=== PATIENT | female | born 1945 | race Caucasian/White ===

== ENCOUNTER 2019-01-31 06:45 | Inpatient (IN) ==
[2019-01-25 15:23] LABS: Basophils # 0.1 10*3/uL (0.0-0.2); Basophils % 0.7 % (0.0-0.8); Eosinophils # 0.1 10*3/uL (0.0-0.87); Eosinophils % 1.3 % (0.00-10.9); Hematocrit 42.1 VOL% (35.7-47.0); Hemoglobin 12.8 GM/DL (12.0-16.0); Immature Granulocytes % 0.5 %; Immature Granulocytes Absolute 0.04 #; Lymphocytes # 1.8 10*3/uL (1.4-4.0); Lymphocytes % 20.9 % (21.3-54.2); Mean Corpuscular HGB Conc 30.4 GM/DL (32-36); Mean Corpuscular Volume 97.5 FL (87-102); Mean Platelet Volume 10.4 FL (9.6-12.0); Monocytes % 7.6 % (1.7-12.7); Platelet Count 271 T/CUMM (130-400); Red Blood Count 4.32 MC/CUMM (3.8-5.5); Red Cell Distribution Width 13.2 % (9.3-17.3); White Blood Count 8.4 T/CUMM (4-12)
[2019-01-25 15:44] LABS: Albumin 3.6 G/DL (3.4-5.0); Bilirubin,Total 0.8 MG/DL (0.2-1.0); Calcium 9.1 MG/DL (8.5-10.1); Osmolality,Calculated 275.7 MOS/KG (273-304); Total Protein 7.3 G/DL (6.4-8.3)
[~2019-01-31 06:45] MED LIST: ceFAZolin 1,000 MG VIAL ONE; ceFAZolin 1,000 MG in SYRINGE 1 EACH IV ONE
[2019-01-31] MEDS ORDERED: LACTATED RINGERS 1,000 ML IV SCH (07:30)
[2019-01-31] MEDS ORDERED: HEPARIN/NACL 0.9% 2 UNITS/ML 2,000 ML IV ONE (07:34)
[2019-01-31] MEDS ORDERED: BUPIVACAINE 0.5% 50 ML VIAL ONE (09:29)
[2019-01-31] MEDS ORDERED: HEPARIN 5,000 UNIT/1 ML VIAL ONE (09:29)
[2019-01-31] MEDS ORDERED: THROMBIN TOPICAL (RECOMBINANT) 5,000 UNIT VIAL TOP ONE (09:30)
[2019-01-31] MEDS ORDERED: LIDOCAINE 1% 20 ML VIAL ONE (09:30)
[2019-01-31] MEDS ORDERED: VANCOMYCIN 500 MG VIAL ONE (09:30)
[2019-01-31] MEDS ORDERED: ONDANSETRON 4 MG/2 ML VIAL IV PRN (14:07)
[2019-01-31] MEDS ORDERED: ALBUTEROL 2.5 MG/3 ML NEB RESP TX PRN (14:10)
[2019-01-31] MEDS ORDERED: NON-FORMULARY MEDICATION (Albuterol Sulfate [Proair Hfa] 2 PUFF) INH PRN (14:10)
[2019-01-31] MEDS ORDERED: KETOROLAC 15 MG/1 ML VIAL IV PRN (14:12)
[2019-01-31] MEDS ORDERED: FLUTICASONE PROPION SALMETEROL INH SCH (14:15)
[2019-01-31] MEDS ORDERED: PROPOFOL 200 MG/20 ML VIAL IV ONE (14:27)
[2019-01-31] MEDS ORDERED: PROTAMINE SULFATE 50 MG/5 ML VIAL IV ONE (14:28)
[2019-01-31] MEDS ORDERED: GLYCOPYRROLATE 0.4 MG/2 ML VIAL ONE (14:28)
[2019-01-31] MEDS ORDERED: DEXAMETHASONE 4 MG/1 ML VIAL ONE (14:28)
[2019-01-31] MEDS ORDERED: PHENYLEPHRINE DRIP 20 MG/250 ML PREMIX IV ONE (14:28)
[2019-01-31] MEDS ORDERED: SEVOFLURANE 1 UNIT/15 MINUTE INH ONE (14:28)
[2019-01-31] MEDS ORDERED: fentaNYL 100 MCG/2 ML VIAL ONE (14:28)
[2019-01-31] MEDS ORDERED: HEPARIN 10,000 UNIT/10 ML VIAL ONE (14:28)
[2019-01-31] MEDS ORDERED: NEOSTIGMINE 10 MG/10 ML VIAL ONE (14:29)
[2019-01-31] MEDS ORDERED: PHENYLEPHRINE 1 MG/10 ML SYRINGE IV ONE (14:29)
[2019-01-31] MEDS ORDERED: ROCURONIUM 100 MG/10 ML VIAL IV ONE (14:29)
[2019-01-31] MEDS: LACTATED RINGERS 1,000 ML IV SCH (16:10)
[2019-01-31] MEDS: CILOSTAZOL 100 MG TABLET PO SCH (21:50)
[2019-02-01] MEDS: ALBUTEROL/IPRATROPIUM 3 ML NEB RESP TX SCH ×3 (02:18→07:15)
[2019-02-01] MEDS: LACTATED RINGERS 1,000 ML IV SCH ×2 (03:00→08:46)
[2019-02-01 04:43] LABS: Hematocrit 31.2 VOL% (35.7-47.0); Hemoglobin 9.7 GM/DL (12.0-16.0)
[2019-02-01 04:57] LABS: Calcium 7.9 MG/DL (8.5-10.1)
[2019-02-01 08:06] VITALS: BP 124/70
[2019-02-01] MEDS ORDERED: CLOPIDOGREL 75 MG TABLET PO SCH ×2 (09:00)
[2019-02-01] MEDS ORDERED: ATORVASTATIN 20 MG TABLET PO SCH (09:00)
[2019-02-01] MEDS ORDERED: FLUTICASONE 50 MCG NASAL SPRAY 16 GM BOTTLE BOTH NARES SCH (09:00)
[2019-02-01] MEDS ORDERED: ESCITALOPRAM 10 MG TABLET PO SCH (09:00)
[2019-02-01] MEDS ORDERED: ISOSORBIDE MONONITRATE 30 MG TABLET PO SCH (09:00)
[2019-02-01] MEDS ORDERED: ASPIRIN CHEW 81 MG TABLET PO SCH (09:00)
[2019-02-01] MEDS ORDERED: ATENOLOL 50 MG TABLET PO SCH (09:00)
[2019-02-01] MEDS ORDERED: TRIAMTERENE/HCTZ 75-50 MG TABLET PO SCH (09:00)
[2019-02-01] MEDS ORDERED: MONTELUKAST 10 MG TABLET PO SCH (09:00)
[2019-02-01] MEDS: CILOSTAZOL 100 MG TABLET PO SCH (10:23)
== END 2019-02-01 10:48 | disposition home or self-care (01) | DRG 254 ==
LOC: N.SDSINP 06:45 → N.4E 14:57
PROVIDERS: ADMIT Surgery; ATTEND Surgery

== ENCOUNTER 2020-01-24 12:39 | Inpatient (IN) ==
[2020-01-24] MEDS ORDERED: ONDANSETRON 4 MG/2 ML VIAL IV STA (13:01)
[2020-01-24] MEDS ORDERED: fentaNYL 100 MCG/2 ML VIAL IV STA (13:01)
[2020-01-24 13:31] LABS: Basophils # 0.1 10*3/uL (0.0-0.2); Basophils % 0.4 % (0.0-0.8); Eosinophils % 0.2 % (0.00-10.9); Hematocrit 36.5 VOL% (35.7-47.0); Hemoglobin 11.3 GM/DL (12.0-16.0); Immature Granulocytes % 0.6 %; Immature Granulocytes Absolute 0.08 #; Lymphocytes # 2.2 10*3/uL (1.4-4.0); Lymphocytes % 15.4 % (21.3-54.2); Mean Corpuscular Volume 93.8 FL (87-102); Mean Platelet Volume 10.2 FL (9.6-12.0); Monocytes % 8.6 % (1.7-12.7); Neutrophils % 74.8 % (38.7-73.9); Platelet Count 308 T/CUMM (130-400); Red Blood Count 3.89 MC/CUMM (3.8-5.5); Red Cell Distribution Width 14.6 % (9.3-17.3); White Blood Count 14.3 T/CUMM (4-12)
[2020-01-24 13:44] LABS: INR 1.1; PT Patient Result 11.3 SECS (9.8-11.9)
[2020-01-24 14:02] LABS: Alanine Aminotransferase 12 U/L (13-56); Alkaline Phosphatase 95 U/L (45-117); Aspartate Amino Transferase 15 U/L (0-37); Blood Urea Nitrogen 27 MG/DL (7-18); Calcium 8.2 MG/DL (8.5-10.1); Estimated Glom Filtration Rate 41 ML/MIN; Ferritin 22.9 ng/ml (8-252); Glucose 89 MG/DL (74-106); Total Protein 6.5 G/DL (6.4-8.3); Troponin I < 0.015 NG/ML (0.00-0.045)
[2020-01-24 14:24] LABS: Apearance,Urine CLOUDY (Clear); Bacteria,Urine Moderate /HPF (Few); Bilirubin,Urine Negative (Negative); Blood, Urine Negative (Negative); Glucose,Urine (UA) Negative (Negative); Hyaline Casts,Urine 3 /LPF (0-3); Ketones,Urine Negative (Negative); Mucus,Urine Occasional /LPF (Occasional); Nitrite,Urine Negative (Negative); Protein,Urine Negative; RBC,Urine 3 /HPF (0-4); Squamous Epithelial Cell,Urine Occasional /HPF (0-10); Urine Color Yellow (Yellow); Urine Specific Gravity 1.013 (1.001-1.035); Urine Urobilinogen < 2.0 EU/DL (0.2-1.0); WBC,Urine 347 /HPF (0-6)
[2020-01-24] MEDS ORDERED: AMPICILLIN/SULBACTAM 3,000 MG in SODIUM CHLORIDE 0.9% 100 ML IV STA (14:39)
[2020-01-24] MEDS ORDERED: ONDANSETRON 4 MG/2 ML VIAL IV PRN (15:26)
[2020-01-24] MEDS ORDERED: DOCUSATE SODIUM 100 MG CAPSULE PO PRN (15:26)
[2020-01-24] MEDS ORDERED: ZALEPLON 5 MG CAPSULE PO PRN (15:26)
[2020-01-24] MEDS ORDERED: DEXTROSE 10% 250 ML BAG IV PRN (15:26)
[2020-01-24] MEDS ORDERED: GLUCAGON 1 MG VIAL IM PRN (15:26)
[2020-01-24] MEDS ORDERED: NON-FORMULARY MEDICATION (Fluticasone Propion-Salmeterol [Advair Hfa] 2 PUFF) INH SCH (16:00)
[2020-01-24 17:49] LABS: Basophils # 0.1 10*3/uL (0.0-0.2); Basophils % 0.4 % (0.0-0.8); Eosinophils % 0.3 % (0.00-10.9); Hematocrit 35.2 VOL% (35.7-47.0); Immature Granulocytes % 0.4 %; Immature Granulocytes Absolute 0.05 #; Lymphocytes # 2.1 10*3/uL (1.4-4.0); Lymphocytes % 18.3 % (21.3-54.2); Mean Corpuscular HGB Conc 31.3 GM/DL (32-36); Mean Corpuscular Volume 93.4 FL (87-102); Mean Platelet Volume 10.6 FL (9.6-12.0); Monocytes % 8.1 % (1.7-12.7); Neutrophils % 72.5 % (38.7-73.9); Platelet Count 278 T/CUMM (130-400); Red Blood Count 3.77 MC/CUMM (3.8-5.5); Red Cell Distribution Width 14.6 % (9.3-17.3); White Blood Count 11.6 T/CUMM (4-12)
[2020-01-24 18:01] LABS: Calcium 8.3 MG/DL (8.5-10.1); Osmolality,Calculated 278.7 MOS/KG (273-304)
[2020-01-24] MEDS: SODIUM CHLORIDE 0.9% 1,000 ML IV SCH (18:07)
[2020-01-24] MEDS: cefTRIAXone 1,000 MG in SYRINGE 1 EACH IV SCH (18:08)
[2020-01-24] MEDS: PANTOPRAZOLE 40 MG TABLET PO SCH (18:08)
[2020-01-24] MEDS: ALBUTEROL/IPRATROPIUM 3 ML NEB RESP TX SCH ×2 (19:15→23:55)
[2020-01-24] MEDS ORDERED: ENOXAPARIN 30 MG/0.3 ML SYRINGE SUBCUT SCH (21:00)
[2020-01-24] MEDS: KETOROLAC 30 MG/1 ML VIAL IV SCH (22:02)
[2020-01-25] MEDS: SODIUM CHLORIDE 0.9% 1,000 ML IV SCH ×3 (05:20→13:00)
[2020-01-25] MEDS: ALBUTEROL/IPRATROPIUM 3 ML NEB RESP TX SCH ×6 (05:56→23:28)
[2020-01-25] MEDS: KETOROLAC 30 MG/1 ML VIAL IV SCH ×3 (06:17→21:37)
[2020-01-25] MEDS ORDERED: ONDANSETRON 4 MG/2 ML VIAL IV PRN (06:22)
[2020-01-25] MEDS ORDERED: MEPERIDINE 25 MG/1 ML VIAL IV PRN (06:22)
[2020-01-25] MEDS ORDERED: PROMETHAZINE INJ 25 MG in SODIUM CHLORIDE 0.9% 50 ML IV PRN (06:22)
[2020-01-25 06:40] LABS: Basophils % 0.5 % (0.0-0.8); Eosinophils # 0.1 10*3/uL (0.0-0.87); Eosinophils % 0.7 % (0.00-10.9); Hematocrit 34.1 VOL% (35.7-47.0); Hemoglobin 10.5 GM/DL (12.0-16.0); Immature Granulocytes % 0.5 %; Immature Granulocytes Absolute 0.04 #; Lymphocytes # 2.2 10*3/uL (1.4-4.0); Lymphocytes % 26.4 % (21.3-54.2); Mean Corpuscular HGB Conc 30.8 GM/DL (32-36); Mean Corpuscular Volume 94.5 FL (87-102); Mean Platelet Volume 10.7 FL (9.6-12.0); Monocytes % 7.9 % (1.7-12.7); Platelet Count 234 T/CUMM (130-400); Red Blood Count 3.61 MC/CUMM (3.8-5.5); Red Cell Distribution Width 14.4 % (9.3-17.3); White Blood Count 8.4 T/CUMM (4-12)
[2020-01-25 07:03] LABS: Calcium 8.2 MG/DL (8.5-10.1); Osmolality,Calculated 278.7 MOS/KG (273-304)
[2020-01-25] MEDS ORDERED: FAMOTIDINE 20 MG/2 ML VIAL IV ONE (07:30)
[2020-01-25] MEDS ORDERED: SUGAMMADEX 200 MG/2 ML VIAL IV ONE (08:13)
[2020-01-25] MEDS ORDERED: ceFAZolin 1,000 MG VIAL ONE (08:18)
[2020-01-25] MEDS: ISOSORBIDE MONONITRATE 30 MG TABLET PO SCH (08:47)
[2020-01-25] MEDS: ATORVASTATIN 20 MG TABLET PO SCH (08:47)
[2020-01-25] MEDS: ASPIRIN CHEW 81 MG TABLET PO SCH (08:47)
[2020-01-25] MEDS: ESCITALOPRAM 10 MG TABLET PO SCH (08:47)
[2020-01-25] MEDS: TRIAMTERENE/HCTZ 75-50 MG TABLET PO SCH (08:47)
[2020-01-25] MEDS: atenoloL 50 MG TABLET PO SCH (08:48)
[2020-01-25] MEDS: MONTELUKAST 10 MG TABLET PO SCH (08:48)
[2020-01-25] MEDS: FLUTICASONE 50 MCG NASAL SPRAY 16 GM BOTTLE BOTH NARES SCH (08:48)
[2020-01-25] MEDS: predniSONE 20 MG TABLET PO SCH (08:48)
[2020-01-25] MEDS: PANTOPRAZOLE 40 MG TABLET PO SCH (08:48)
[2020-01-25] MEDS ORDERED: MEPERIDINE 25 MG/1 ML VIAL ONE (09:14)
[2020-01-25] MEDS ORDERED: ONDANSETRON 4 MG/2 ML VIAL ONE ×2 (09:14→12:25)
[2020-01-25] MEDS ORDERED: traMADol 50 MG TABLET PO PRN (10:22)
[2020-01-25] MEDS ORDERED: HYDROmorphone 2 MG/1 ML VIAL IV PRN (10:22)
[2020-01-25] MEDS ORDERED: SODIUM CHLORIDE 0.9% 500 ML IV ONE ×2 (10:44→12:25)
[2020-01-25] MEDS ORDERED: propofoL 200 MG/20 ML VIAL IV ONE (12:24)
[2020-01-25] MEDS ORDERED: LIDOCAINE 2% 5 ML VIAL ONE (12:24)
[2020-01-25] MEDS ORDERED: DESFLURANE 1 UNIT/15 MINUTE INH ONE (12:24)
[2020-01-25] MEDS ORDERED: PHENYLEPHRINE 1 MG/10 ML SYRINGE IV ONE (12:25)
[2020-01-25] MEDS ORDERED: GLYCOPYRROLATE 0.4 MG/2 ML VIAL ONE (12:25)
[2020-01-25] MEDS ORDERED: ETOMIDATE 40 MG/20 ML VIAL IV ONE (12:25)
[2020-01-25] MEDS ORDERED: fentaNYL 100 MCG/2 ML VIAL ONE (12:25)
[2020-01-25] MEDS ORDERED: SUCCINYLCHOLINE 200 MG/10 ML VIAL ONE (12:25)
[2020-01-25] MEDS ORDERED: ROCURONIUM 100 MG/10 ML VIAL IV ONE (12:25)
[2020-01-25] MEDS: cefTRIAXone 1,000 MG in SYRINGE 1 EACH IV SCH (16:03)
[2020-01-25] MEDS: APIXABAN 2.5 MG TABLET PO SCH (21:37)
[2020-01-26] MEDS: SODIUM CHLORIDE 0.9% 1,000 ML IV SCH ×2 (00:20→11:42)
[2020-01-26] MEDS: ALBUTEROL/IPRATROPIUM 3 ML NEB RESP TX SCH ×3 (03:54→11:22)
[2020-01-26] MEDS: KETOROLAC 30 MG/1 ML VIAL IV SCH ×2 (05:51→13:56)
[2020-01-26 06:21] LABS: Basophils % 0.5 % (0.0-0.8); Eosinophils # 0.2 10*3/uL (0.0-0.87); Eosinophils % 2.1 % (0.00-10.9); Hematocrit 31.9 VOL% (35.7-47.0); Hemoglobin 9.7 GM/DL (12.0-16.0); Immature Granulocytes % 0.5 %; Immature Granulocytes Absolute 0.04 #; Lymphocytes # 1.4 10*3/uL (1.4-4.0); Lymphocytes % 16.3 % (21.3-54.2); Mean Corpuscular HGB Conc 30.4 GM/DL (32-36); Mean Corpuscular Volume 96.4 FL (87-102); Mean Platelet Volume 10.4 FL (9.6-12.0); Monocytes % 8.5 % (1.7-12.7); Neutrophils % 72.1 % (38.7-73.9); Platelet Count 208 T/CUMM (130-400); Red Blood Count 3.31 MC/CUMM (3.8-5.5); Red Cell Distribution Width 14.6 % (9.3-17.3); White Blood Count 8.7 T/CUMM (4-12)
[2020-01-26 06:50] LABS: Calcium 8.1 MG/DL (8.5-10.1); Osmolality,Calculated 275.7 MOS/KG (273-304)
[2020-01-26] MEDS: ASPIRIN CHEW 81 MG TABLET PO SCH (10:25)
[2020-01-26] MEDS: APIXABAN 2.5 MG TABLET PO SCH (10:25)
[2020-01-26] MEDS: FLUTICASONE 50 MCG NASAL SPRAY 16 GM BOTTLE BOTH NARES SCH (10:25)
[2020-01-26] MEDS: ISOSORBIDE MONONITRATE 30 MG TABLET PO SCH (10:25)
[2020-01-26] MEDS: ESCITALOPRAM 10 MG TABLET PO SCH (10:26)
[2020-01-26] MEDS: predniSONE 20 MG TABLET PO SCH ×2 (10:37→12:31)
[2020-01-26] MEDS: ATORVASTATIN 20 MG TABLET PO SCH ×2 (10:37→12:31)
[2020-01-26] MEDS: PANTOPRAZOLE 40 MG TABLET PO SCH (10:38)
[2020-01-26] MEDS: atenoloL 50 MG TABLET PO SCH (10:38)
[2020-01-26] MEDS: MONTELUKAST 10 MG TABLET PO SCH (10:38)
[2020-01-26] MEDS: TRIAMTERENE/HCTZ 75-50 MG TABLET PO SCH (10:40)
[2020-01-26 12:12] VITALS: BP 133/68
[2020-01-30] MEDS ORDERED: predniSONE 20 MG TABLET PO SCH (09:00)
== END 2020-01-26 13:54 | disposition home health service (06) | DRG 481 ==
LOC: N.ED 12:39 → N.EDINP 15:26 → SUATTDRO 15:26 → N.EDINP 16:52 → N.3E 17:08
PROVIDERS: ADMIT Family Medicine; ATTEND Emergency Medicine

== ENCOUNTER 2020-01-27 16:56 | Inpatient (IN) ==
[2020-01-27] MEDS ORDERED: SODIUM CHLORIDE 0.9% 500 ML IV STA (17:22)
[2020-01-27] MEDS ORDERED: KETOROLAC 30 MG/1 ML VIAL IV STA (17:22)
[2020-01-27] MEDS ORDERED: PANTOPRAZOLE 40 MG VIAL IV STA (17:22)
[2020-01-27] MEDS ORDERED: ONDANSETRON 4 MG/2 ML VIAL IV STA (17:22)
[2020-01-27 17:49] LABS: Basophils # 0.1 10*3/uL (0.0-0.2); Basophils % 0.5 % (0.0-0.8); Eosinophils % 0.1 % (0.00-10.9); Hemoglobin 9.9 GM/DL (12.0-16.0); Immature Granulocytes % 0.7 %; Immature Granulocytes Absolute 0.08 #; Lymphocytes % 8.2 % (21.3-54.2); Mean Corpuscular HGB Conc 30.9 GM/DL (32-36); Mean Corpuscular Volume 93.8 FL (87-102); Mean Platelet Volume 10.6 FL (9.6-12.0); Monocytes % 6.6 % (1.7-12.7); Neutrophils % 83.9 % (38.7-73.9); Platelet Count 238 T/CUMM (130-400); Red Blood Count 3.41 MC/CUMM (3.8-5.5); Red Cell Distribution Width 14.6 % (9.3-17.3); White Blood Count 11.6 T/CUMM (4-12)
[2020-01-27 18:09] LABS: Albumin 2.6 G/DL (3.4-5.0); Bilirubin,Total 0.8 MG/DL (0.2-1.0); CKMB % 3.3 %; Osmolality,Calculated 262.8 MOS/KG (273-304); Total Protein 6.1 G/DL (6.4-8.3)
[2020-01-27 18:15] LABS: Apearance,Urine Slightly Hazy (Clear); Bacteria,Urine Occasional /HPF (Few); Bilirubin,Urine Negative (Negative); Blood, Urine Negative (Negative); Glucose,Urine (UA) Negative (Negative); Hyaline Casts,Urine 11 /LPF (0-3); Ketones,Urine 5 mg/dL (Negative); Mucus,Urine Occasional /LPF (Occasional); Nitrite,Urine Negative (Negative); Protein,Urine Negative; RBC,Urine 1 /HPF (0-4); Squamous Epithelial Cell,Urine Occasional /HPF (0-10); Urine Color Amber (Yellow); Urine Specific Gravity 1.017 (1.001-1.035); Urine Urobilinogen < 2.0 EU/DL (0.2-1.0); WBC,Urine 2 /HPF (0-6)
[2020-01-27 19:26] LABS: Ferritin 111.9 ng/ml (8-252)
[2020-01-27] MEDS ORDERED: ONDANSETRON 4 MG/2 ML VIAL IV PRN (20:35)
[2020-01-27] MEDS ORDERED: DEXTROSE 50% 25 GM/50 ML VIAL IV PRN (20:35)
[2020-01-27] MEDS ORDERED: GLUCAGON 1 MG VIAL IM PRN (20:35)
[2020-01-27] MEDS: LACTATED RINGERS 1,000 ML IV SCH (23:09)
[2020-01-27] MEDS: APIXABAN 2.5 MG TABLET PO SCH (23:10)
[2020-01-27] MEDS: AMPICILLIN 500 MG CAPSULE PO SCH (23:10)
[2020-01-27] MEDS: DOCUSATE SODIUM 100 MG CAPSULE PO SCH (23:28)
[2020-01-27 23:40] LABS: CKMB % 2.9 %; Troponin I 0.756 NG/ML (0.00-0.045)
[2020-01-27] MEDS ORDERED: ALBUTEROL/IPRATROPIUM 3 ML NEB RESP TX ONE (23:59)
[2020-01-28] MEDS: ALBUTEROL/IPRATROPIUM 3 ML NEB RESP TX SCH ×5 (00:13→19:51)
[2020-01-28 03:03] LABS: Basophils % 0.4 % (0.0-0.8); Eosinophils # 0.1 10*3/uL (0.0-0.87); Eosinophils % 1.1 % (0.00-10.9); Hematocrit 29.7 VOL% (35.7-47.0); Hemoglobin 8.9 GM/DL (12.0-16.0); Immature Granulocytes % 0.5 %; Immature Granulocytes Absolute 0.05 #; Lymphocytes # 1.2 10*3/uL (1.4-4.0); Lymphocytes % 12.5 % (21.3-54.2); Mean Corpuscular Volume 96.1 FL (87-102); Mean Platelet Volume 11.2 FL (9.6-12.0); Monocytes % 8.2 % (1.7-12.7); Neutrophils % 77.3 % (38.7-73.9); Platelet Count 212 T/CUMM (130-400); Red Blood Count 3.09 MC/CUMM (3.8-5.5); Red Cell Distribution Width 14.8 % (9.3-17.3); White Blood Count 9.2 T/CUMM (4-12)
[2020-01-28] MEDS: MORPHINE 4 MG/1 ML VIAL IV PRN ×3 (03:43→18:26)
[2020-01-28 04:09] LABS: Troponin I 0.629 NG/ML (0.00-0.045)
[2020-01-28 06:45] LABS: Troponin I 0.533 NG/ML (0.00-0.045)
[2020-01-28] MEDS: LACTATED RINGERS 1,000 ML IV SCH ×2 (08:47→17:11)
[2020-01-28] MEDS: CHOLECALCIFEROL 1,000 UNIT TABLET PO SCH (08:49)
[2020-01-28] MEDS: AMPICILLIN 500 MG CAPSULE PO SCH ×3 (08:49→21:46)
[2020-01-28] MEDS: FLUTICASONE 50 MCG NASAL SPRAY 16 GM BOTTLE BOTH NARES SCH (08:49)
[2020-01-28] MEDS: TRIAMTERENE/HCTZ 75-50 MG TABLET PO SCH (08:49)
[2020-01-28] MEDS: ASPIRIN CHEW 81 MG TABLET PO SCH (08:49)
[2020-01-28] MEDS: ESCITALOPRAM 10 MG TABLET PO SCH (08:50)
[2020-01-28] MEDS: PANTOPRAZOLE 40 MG TABLET PO SCH (08:50)
[2020-01-28] MEDS: MONTELUKAST 10 MG TABLET PO SCH (08:50)
[2020-01-28] MEDS: atenoloL 50 MG TABLET PO SCH (08:50)
[2020-01-28] MEDS: amLODIPine 2.5 MG TABLET PO SCH (08:50)
[2020-01-28] MEDS: APIXABAN 2.5 MG TABLET PO SCH ×2 (08:50→21:46)
[2020-01-28] MEDS: DOCUSATE SODIUM 100 MG CAPSULE PO SCH ×2 (08:51→21:46)
[2020-01-28] MEDS: ISOSORBIDE MONONITRATE 30 MG TABLET PO SCH (08:51)
[2020-01-28] MEDS ORDERED: KETOROLAC 15 MG/1 ML VIAL IV ONE (10:05)
[2020-01-28] MEDS: KETOROLAC 15 MG/1 ML VIAL IV PRN (18:26)
[2020-01-29] MEDS: ALBUTEROL/IPRATROPIUM 3 ML NEB RESP TX SCH ×4 (01:24→19:31)
[2020-01-29] MEDS: MORPHINE 4 MG/1 ML VIAL IV PRN (03:48)
[2020-01-29] MEDS: KETOROLAC 15 MG/1 ML VIAL IV PRN (03:49)
[2020-01-29] MEDS: LACTATED RINGERS 1,000 ML IV SCH (05:10)
[2020-01-29 05:51] LABS: Basophils % 0.4 % (0.0-0.8); Eosinophils # 0.1 10*3/uL (0.0-0.87); Eosinophils % 1.7 % (0.00-10.9); Hemoglobin 8.8 GM/DL (12.0-16.0); Immature Granulocytes % 0.4 %; Immature Granulocytes Absolute 0.03 #; Lymphocytes # 0.7 10*3/uL (1.4-4.0); Lymphocytes % 9.6 % (21.3-54.2); Mean Corpuscular HGB Conc 31.4 GM/DL (32-36); Mean Platelet Volume 10.9 FL (9.6-12.0); Monocytes % 8.5 % (1.7-12.7); Neutrophils % 79.4 % (38.7-73.9); Platelet Count 168 T/CUMM (130-400); Red Blood Count 2.98 MC/CUMM (3.8-5.5); Red Cell Distribution Width 14.8 % (9.3-17.3); White Blood Count 7.2 T/CUMM (4-12)
[2020-01-29 06:10] LABS: Albumin 2.3 G/DL (3.4-5.0); Calcium 7.6 MG/DL (8.5-10.1); Osmolality,Calculated 263.8 MOS/KG (273-304); Total Protein 5.3 G/DL (6.4-8.3)
[2020-01-29] MEDS: amLODIPine 2.5 MG TABLET PO SCH (09:10)
[2020-01-29] MEDS: TRIAMTERENE/HCTZ 75-50 MG TABLET PO SCH (09:10)
[2020-01-29] MEDS: PANTOPRAZOLE 40 MG TABLET PO SCH (09:10)
[2020-01-29] MEDS: atenoloL 50 MG TABLET PO SCH (09:10)
[2020-01-29] MEDS: DOCUSATE SODIUM 100 MG CAPSULE PO SCH ×2 (09:10→20:37)
[2020-01-29] MEDS: ISOSORBIDE MONONITRATE 30 MG TABLET PO SCH (09:10)
[2020-01-29] MEDS: CHOLECALCIFEROL 1,000 UNIT TABLET PO SCH (09:10)
[2020-01-29] MEDS: APIXABAN 2.5 MG TABLET PO SCH ×2 (09:10→20:37)
[2020-01-29] MEDS: ESCITALOPRAM 10 MG TABLET PO SCH (09:10)
[2020-01-29] MEDS: AMPICILLIN 500 MG CAPSULE PO SCH ×3 (09:10→20:37)
[2020-01-29] MEDS: MONTELUKAST 10 MG TABLET PO SCH (09:10)
[2020-01-29] MEDS: ASPIRIN CHEW 81 MG TABLET PO SCH (09:10)
[2020-01-29] MEDS: FLUTICASONE 50 MCG NASAL SPRAY 16 GM BOTTLE BOTH NARES SCH ×2 (09:11→09:16)
[2020-01-29] MEDS ORDERED: KETOROLAC 10 MG TABLET PO ONE (10:16)
[2020-01-29] MEDS ORDERED: FUROSEMIDE 20 MG/2 ML VIAL IV ONE (11:46)
[2020-01-29] MEDS ORDERED: traMADol 50 MG TABLET PO PRN (11:50)
[2020-01-29] MEDS: traMADol 50 MG TABLET PO SCH ×2 (15:40→20:38)
[2020-01-29] MEDS: KETOROLAC 10 MG TABLET PO SCH (17:33)
[2020-01-29] MEDS ORDERED: FLUTICASONE 50 MCG NASAL SPRAY 16 GM BOTTLE BOTH NARES SCH (21:00)
[2020-01-30] MEDS: ALBUTEROL/IPRATROPIUM 3 ML NEB RESP TX SCH ×2 (00:48→07:32)
[2020-01-30] MEDS: traMADol 50 MG TABLET PO SCH ×2 (02:24→08:58)
[2020-01-30 05:27] LABS: Basophils % 0.4 % (0.0-0.8); Eosinophils # 0.2 10*3/uL (0.0-0.87); Eosinophils % 2.1 % (0.00-10.9); Hematocrit 29.3 VOL% (35.7-47.0); Hemoglobin 8.9 GM/DL (12.0-16.0); Immature Granulocytes % 0.4 %; Immature Granulocytes Absolute 0.03 #; Lymphocytes # 0.8 10*3/uL (1.4-4.0); Lymphocytes % 11.5 % (21.3-54.2); Mean Corpuscular HGB Conc 30.4 GM/DL (32-36); Mean Corpuscular Volume 96.1 FL (87-102); Mean Platelet Volume 11.2 FL (9.6-12.0); Neutrophils % 76.6 % (38.7-73.9); Platelet Count 214 T/CUMM (130-400); Red Blood Count 3.05 MC/CUMM (3.8-5.5); Red Cell Distribution Width 14.7 % (9.3-17.3); White Blood Count 7.3 T/CUMM (4-12)
[2020-01-30 05:53] LABS: Calcium 8.3 MG/DL (8.5-10.1); Osmolality,Calculated 263.8 MOS/KG (273-304)
[2020-01-30 08:19] VITALS: BP 142/74
[2020-01-30] MEDS: amLODIPine 2.5 MG TABLET PO SCH (08:57)
[2020-01-30] MEDS: KETOROLAC 10 MG TABLET PO SCH (08:57)
[2020-01-30] MEDS: atenoloL 50 MG TABLET PO SCH (08:57)
[2020-01-30] MEDS: APIXABAN 2.5 MG TABLET PO SCH (08:58)
[2020-01-30] MEDS: CHOLECALCIFEROL 1,000 UNIT TABLET PO SCH (08:58)
[2020-01-30] MEDS: DOCUSATE SODIUM 100 MG CAPSULE PO SCH (08:58)
[2020-01-30] MEDS: ISOSORBIDE MONONITRATE 30 MG TABLET PO SCH (08:58)
[2020-01-30] MEDS: AMPICILLIN 500 MG CAPSULE PO SCH (08:58)
[2020-01-30] MEDS: ESCITALOPRAM 10 MG TABLET PO SCH (08:58)
[2020-01-30] MEDS: ASPIRIN CHEW 81 MG TABLET PO SCH (08:58)
[2020-01-30] MEDS: PANTOPRAZOLE 40 MG TABLET PO SCH (08:58)
[2020-01-30] MEDS: MONTELUKAST 10 MG TABLET PO SCH (08:58)
[2020-01-30] MEDS ORDERED: ATORVASTATIN 20 MG TABLET PO SCH (09:00)
[2020-01-30] MEDS ORDERED: FERROUS SULFATE 325 MG TABLET PO SCH (09:00)
== END 2020-01-30 13:12 | disposition home or self-care (01) | DRG 185 ==
LOC: N.ED 16:56 → N.EDINP 16:56 → N.TELEN 22:48
PROVIDERS: ADMIT Family Medicine; ATTEND Family Medicine